=== PATIENT | male | born 1975 | race African-American/Black ===

== ENCOUNTER 2018-10-05 08:57 | Emergency (ER) | payer MEDICAID, OTHER ==
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
[2018-10-05 09:27] LABS: PLATELET COUNT 171 10^3/uL (150-400)
[2018-10-05] MEDS ORDERED: IOPAMIDOL (ISOVUE-300) 100 ML BTL ONE (09:38)
[2018-10-05] MEDS ORDERED: KETOROLAC 30 MG/1 ML SDV IVP ONE (11:00)
[2018-10-05 11:15] VITALS: BP 152/91
== END 2018-10-05 11:14 ==
LOC: EEVIPCON 08:57
DX: R10.84 Generalized abdominal pain (principal); Y04.0XXA Assault by unarmed brawl or fight, initial encounter
CPT/HCPCS: 82435-PO; 82565-PO; 82947-PO; 84132-PO; 84295-PO; 84520-PO; 85014-PO; 96374; J1885; Q9967